=== PATIENT | male | born 1960 | race Caucasian/White ===

== ENCOUNTER 2024-02-23 09:16 | Observation (INO) | payer BC ==
[2024-02-23 10:22] LABS: Hematocrit 43.4 % (38.8-50.0); Hemoglobin 15.3 g/dL (13.5-17.5)
[2024-02-23 10:32] LABS: Anion Gap 14 mmol/L (10-20); BUN (Urea Nitrogen) 22 mg/dL (8.4-25.7); Calc. Creatinine Clearance 87 mL/min (70-130); Calcium 9.2 mg/dL (7.8-10.44); Carbon Dioxide 23 mmol/L (23-31); Chloride 106 mmol/L (98-107); Estimated GFR 69; Glucose 99 mg/dL (80-115); Sodium 138 mmol/L (136-145)
[2024-02-23 10:36] LABS: Potassium 4.7 mmol/L (3.5-5.1)
[2024-02-23] MEDS ORDERED: Oxymetazoline HCl 0.05% ( 15 ML ) ONE (11:06)
[2024-02-23] MEDS ORDERED: PROPOFOL 40 ML ONE (11:23)
[2024-02-23] MEDS ORDERED: Dexamethasone 20 MG/5 ML VIAL ONE (11:23)
[2024-02-23] MEDS ORDERED: fentaNYL 50 mcg/mL 1 mL Vial ONE ×6 (11:23→14:30)
[2024-02-23] MEDS ORDERED: SUGAMMADEX SODIUM 200 MG/2 ML VIAL ONE (11:23)
[2024-02-23] MEDS ORDERED: Rocuronium Bromide 10 MG/ML (10ML VIAL) ONE (11:23)
[2024-02-23] MEDS ORDERED: Ondansetron PF 4 MG/2 ML Vial ONE (11:23)
[2024-02-23] MEDS ORDERED: Fentanyl 250 MCG/5 ML VIAL ONE (11:24)
[2024-02-23] MEDS ORDERED: Midazolam HCl 2 mg/2 ml Vial ONE (11:24)
[2024-02-23] MEDS ORDERED: CEFAZOLIN 2 GM VIAL ONE (11:58)
[2024-02-23] MEDS ORDERED: Glycopyrrolate 0.2 MG/ML 5 ML SYRINGE ONE (12:42)
[2024-02-23] MEDS ORDERED: PHENYLEPHRINE-NS 100 MCG/ML 10 ML SYRINGE ONE (12:45)
[2024-02-23] MEDS ORDERED: Lidocaine 1% (PF) 30 ML VIAL ONE (12:53)
[2024-02-23] MEDS ORDERED: EPINEPHrine 1 MG/ML AMP ONE (12:53)
[2024-02-23] MEDS ORDERED: Mupirocin 2% Ointment 22 GM Tube ONE (13:14)
[2024-02-23] MEDS ORDERED: Guaifenesin DM 100-10/5 ML UDCUP PO PRN (13:51)
[2024-02-23] MEDS ORDERED: Oxymetazoline HCl 0.05% ( 15 ML ) NASAL PRN (13:55)
[2024-02-23 15:10] VITALS: BMI 28.4
[2024-02-23] MEDS: traMADol HCl 50 MG TAB PO PRN (16:02)
[2024-02-23] MEDS: HYDROcodone/Acetaminophen 5/325 mg Tablet PO PRN (17:12)
[2024-02-23] MEDS: Acetaminophen 325 MG TAB PO SCH (18:26)
[2024-02-23] MEDS: Sodium Chloride 0.65% Nasal 44 ML BOT EA NARE SCH (18:31)
[2024-02-23] MEDS: Naproxen 500 MG TAB PO SCH (21:42)
[2024-02-24 07:45] VITALS: BP 143/87; TEMP 98.4
[2024-02-24] MEDS: Losartan 50 MG TAB PO SCH (07:46)
[2024-02-24] MEDS: DULoxetine 30 MG CAP PO SCH (07:46)
[2024-02-24] MEDS: Rosuvastatin 10 MG TAB PO SCH (07:47)
[2024-02-24] MEDS: Amlodipine 10 MG TAB PO SCH (07:47)
== END 2024-02-24 07:55 | disposition home or self-care (01) ==
LOC: CSHSDC 09:16 → CSHTELE 14:57
PROVIDERS: ADMIT Otolaryngology Otolaryngic Allergy; ATTEND Otolaryngology Otolaryngic Allergy
PROC: 09BM8ZZ Excision of Nasal Septum, Via Natural or Artificial Opening Endoscopic (ICD-10-PCS; principal; 2024-02-23)
PROC: 09TL7ZZ Resection of Nasal Turbinate, Via Natural or Artificial Opening (ICD-10-PCS; 2024-02-23)
PROC: 4A1ZXQZ Monitoring of Sleep, External Approach (ICD-10-PCS; 2024-02-23)
DX: G47.33 Obstructive sleep apnea (adult) (pediatric) (principal); J34.2 Deviated nasal septum; J34.3 Hypertrophy of nasal turbinates; J34.89 Other specified disorders of nose and nasal sinuses; E78.5 Hyperlipidemia, unspecified; I10 Essential (primary) hypertension; I25.10 Atherosclerotic heart disease of native coronary artery without angina pectoris; E66.9 Obesity, unspecified; Z68.28 Body mass index [BMI] 28.0-28.9, adult; Z87.891 Personal history of nicotine dependence; Z88.5 Allergy status to narcotic agent; Z88.6 Allergy status to analgesic agent; Z91.041 Radiographic dye allergy status; Z95.0 Presence of cardiac pacemaker; Z88.8 Allergy status to other drugs, medicaments and biological substances
CPT/HCPCS: 36415; 80048; 85014; 85018; 94760; 94762; J0171; J1100; J2001; J2250; J2405; J2704; J3010

== ENCOUNTER 2025-07-26 09:36 | Observation (INO) | payer BC ==
[~2025-07-26 09:36] MED LIST: Iopamidol 300 61% 100 ML VIAL FS ONE
[2025-07-26 10:49] VITALS: BMI 28.2
[2025-07-26 11:09] LABS: #Basophils 0.09 10x3/uL (0.0-0.2); #Eosinophils 0.07 10x3/uL (0.0-0.5); #Monocytes 0.73 10x3/uL (0.0-1.1); #Neutrophils 5.11 10x3/uL (1.5-8.4); %Basophils 1.1 % (0.0-2.0); %Eosinophils 0.9 % (0.0-6.0); %Lymphocytes 22.7 % (18.0-47.0); %Monocytes 9.3 % (0.0-10.0); %Neutrophils 65.1 % (40.0-75.0); Hematocrit 46.2 % (38.8-50.0); Hemoglobin 15.3 g/dL (13.5-17.5); Mean Corpuscular Hemoglobin 29.4 pg (27.0-33.0); Mean Corpuscular Volume 88.7 fL (81.2-95.1); Platelet Count 204 10x3/uL (150-450); Red Blood Cell (RBC) Count 5.21 10x6/uL (4.32-5.72); White Blood Cell (WBC) Count 7.85 10x3/uL (3.5-10.5)
[2025-07-26] MEDS ORDERED: Ondansetron PF 4 MG/2 ML Vial IVP PRN (11:17)
[2025-07-26] MEDS ORDERED: Melatonin 3 MG TAB PO PRN (11:17)
[2025-07-26] MEDS ORDERED: Acetaminophen 325 MG TAB PO PRN (11:17)
[2025-07-26] MEDS ORDERED: Senokot S 8.6-50 MG TAB PO PRN (11:17)
[2025-07-26 11:20] LABS: INR-International Normal Ratio 1.0; Prothrombin Time 10.6 sec (9.5-12.1)
[2025-07-26] MEDS ORDERED: Electrolyte Replacement Protocol 1 EACH FS SCH (11:30)
[2025-07-26 11:40] LABS: Troponin I Less than 0.010 ng/mL (< 0.028)
[2025-07-26] MEDS ORDERED: PHOS-NAK 1 PKT PACK PO PRN (11:45)
[2025-07-26] MEDS ORDERED: Magnesium 2 GM/50 ML(in water) 2 GM in Premix 1 BAG IVPB PRN (11:45)
[2025-07-26] MEDS ORDERED: Potassium Chloride 20 MEQ in Premix 1 BAG IVPB PRN (11:45)
[2025-07-26] MEDS ORDERED: Lidocaine 1% (PF) 30 ML VIAL ONE (11:47)
[2025-07-26] MEDS ORDERED: diphenhydrAMINE 50 MG/ML VIAL ONE (11:48)
[2025-07-26] MEDS ORDERED: Heparin 10,000 UNITS/ 10 ML VIAL ONE ×2 (11:48→13:22)
[2025-07-26] MEDS ORDERED: Famotidine/PF 20 mg/2ml Vial ONE (11:49)
[2025-07-26 12:03] LABS: ALT (SGPT) 19 U/L (Less than 45); AST (SGOT) 18 U/L (11-34); Albumin 4.3 g/dL (3.1-4.5); Alkaline Phosphatase 77 U/L (40-110); Anion Gap 17 mmol/L (10-20); BUN (Urea Nitrogen) 20 mg/dL (8.4-25.7); Bilirubin, Total 0.6 mg/dL (0.3-1.2); Calc. Creatinine Clearance 86 mL/min (70-130); Calcium 8.9 mg/dL (7.8-10.44); Carbon Dioxide 22 mmol/L (23-31); Chloride 104 mmol/L (98-107); Globulin 3.4 g/dL (2.4-3.5); Glucose 94 mg/dL (80-115); Magnesium 2.0 mg/dL (1.6-2.6); Potassium 3.5 mmol/L (3.5-5.1); Sodium 139 mmol/L (136-145)
[2025-07-26] MEDS ORDERED: TICAGRELOR 90 MG TABLET ONE (13:00)
[2025-07-26] MEDS ORDERED: Aspirin Chewable 81 MG TAB ONE (13:16)
[2025-07-26] MEDS ORDERED: Nitroglycerin 50 MG/250 ML BOT 250 ML ONE (13:20)
[2025-07-26] MEDS: TICAGRELOR 90 MG TABLET PO SCH (20:49)
[2025-07-27 05:23] LABS: #Basophils 0.04 10x3/uL (0.0-0.2); #Eosinophils 0.07 10x3/uL (0.0-0.5); #Monocytes 0.62 10x3/uL (0.0-1.1); #Neutrophils 3.56 10x3/uL (1.5-8.4); %Basophils 0.7 % (0.0-2.0); %Eosinophils 1.3 % (0.0-6.0); %Lymphocytes 21.4 % (18.0-47.0); %Monocytes 11.2 % (0.0-10.0); %Neutrophils 64.5 % (40.0-75.0); Hematocrit 42.7 % (38.8-50.0); Hemoglobin 14.1 g/dL (13.5-17.5); Mean Corpuscular Hemoglobin 28.7 pg (27.0-33.0); Mean Corpuscular Volume 86.8 fL (81.2-95.1); Platelet Count 154 10x3/uL (150-450); Red Blood Cell (RBC) Count 4.92 10x6/uL (4.32-5.72); White Blood Cell (WBC) Count 5.52 10x3/uL (3.5-10.5)
[2025-07-27 05:37] LABS: ALT (SGPT) 16 U/L (Less than 45); AST (SGOT) 28 U/L (11-34); Albumin 3.8 g/dL (3.1-4.5); Alkaline Phosphatase 63 U/L (40-110); Anion Gap 13 mmol/L (10-20); BUN (Urea Nitrogen) 18 mg/dL (8.4-25.7); Bilirubin, Total 0.6 mg/dL (0.3-1.2); Calc. Creatinine Clearance 89 mL/min (70-130); Calcium 8.9 mg/dL (7.8-10.44); Carbon Dioxide 23 mmol/L (23-31); Chloride 107 mmol/L (98-107); Globulin 3.7 g/dL (2.4-3.5); Glucose 100 mg/dL (80-115); Sodium 138 mmol/L (136-145)
[2025-07-27 06:09] LABS: Potassium 4.0 mmol/L (3.5-5.1)
[2025-07-27 07:53] VITALS: BP 135/85; TEMP 97.7
[2025-07-27] MEDS: Aspirin Chewable 81 MG TAB PO SCH (08:14)
[2025-07-27] MEDS: Rosuvastatin 10 MG TAB PO SCH (08:14)
[2025-07-27] MEDS: Metoprolol Succinate XL 50 MG ER.TAB PO SCH (08:15)
[2025-07-27] MEDS: DULoxetine 30 MG CAP PO SCH (08:15)
== END 2025-07-27 10:40 | disposition home or self-care (01) ==
LOC: CSHTELE 10:26
PROVIDERS: ADMIT Internal Medicine; ATTEND Internal Medicine
PROC: 4A023N7 Measurement of Cardiac Sampling and Pressure, Left Heart, Percutaneous Approach (ICD-10-PCS; principal; 2025-07-26)
DX: I24.9 Acute ischemic heart disease, unspecified (principal); I21.4 Non-ST elevation (NSTEMI) myocardial infarction; I11.9 Hypertensive heart disease without heart failure; I25.10 Atherosclerotic heart disease of native coronary artery without angina pectoris; I49.5 Sick sinus syndrome; I48.0 Paroxysmal atrial fibrillation; I25.2 Old myocardial infarction; E78.5 Hyperlipidemia, unspecified; Z87.891 Personal history of nicotine dependence; Z95.5 Presence of coronary angioplasty implant and graft; Z95.0 Presence of cardiac pacemaker; Z90.49 Acquired absence of other specified parts of digestive tract; Z79.82 Long term (current) use of aspirin; Z79.899 Other long term (current) drug therapy
CPT/HCPCS: 36415; 71045; 80053; 83735; 84484; 85025; 85347; 85610; 92978; 92979; 93005; 93010; 93458; 94760; 99152; 99153; C1753; C1760; C1769; C1887; G0378; J1200; J1308; J1644; J2003; J2250; J2720; J2919; Q9967